=== PATIENT | female | born 1950 | race Asian ===

== ENCOUNTER 2023-03-17 11:29 | Outpatient (CLI) | payer OTHER | END 2023-03-17 19:10 | disposition home or self-care (01) | LOC: SCT 11:29 | PROVIDERS: ATTEND Internal Medicine | DX: I67.82 Cerebral ischemia (principal); G31.89 Other specified degenerative diseases of nervous system; I60.9 Nontraumatic subarachnoid hemorrhage, unspecified | CPT/HCPCS: 70450-TC; 76376 ==